=== PATIENT | female | born 1985 | race Caucasian/White ===

== ENCOUNTER 2018-11-15 19:42 | Emergency (ER) | payer MEDICAID, OTHER ==
[~2018-11-15] VITALS: Ht 162.6 cm; Wt 57.6 kg
[~2018-11-15 19:42] MED LIST: CLIN150C8 PO; CYCL-1 PO; HYDR-4383 PO
[2018-11-15 20:01] VITALS: BP 111/70
[2018-11-15] MEDS ORDERED: HYDROcodone/acetaminophen 5mg/325mg tablet PO ONE (21:20)
[2018-11-15] MEDS ORDERED: SULF1TAB49 PO (21:25)
== END 2018-11-15 21:42 | disposition home or self-care (01) ==
LOC: ER 19:43
DX: L02.413 Cutaneous abscess of right upper limb (principal); F15.90 Other stimulant use, unspecified, uncomplicated; Z86.14 Personal history of Methicillin resistant Staphylococcus aureus infection; Z79.899 Other long term (current) drug therapy
CPT/HCPCS: 10060; 99283

== ENCOUNTER 2025-05-16 02:04 | Emergency (ER) | payer MEDICAID ==
[~2025-05-16] VITALS: Ht 162.6 cm; Wt 71.7 kg
[~2025-05-16 02:04] MED LIST changes: +CLIN-214 PO; -CLIN150C8 PO
[2025-05-16 02:12] VITALS: TEMP 98.1
--- NOTE | 2025-05-16 02:36 | Physician Documentation ---
History of Present Illness ~ Chief Complaint: Urinary Symptoms Stated Complaint: URINARY SYMPTOMS Time Seen by MD: 02:32 Primary Medical Doctor: NO PMD HPI Patient presents to the emergency room with concerns for STDs. She states she notes her boyfriend cheated on her and they are not together anymore. She is having some degree of discomfort in her vaginal area. No fevers Medication Reconciliation Allergies: Coded Allergies: No Known Allergies (Unverified , 01/28/17) Scheduled Clindamycin HCl (Clindamycin HCl CAPSULE), 3 CAP PO TID Hydrocodone/Acetaminophen ([place] 5-325 Tablet), 1 TAB PO TID PRN Scheduled PRN Cyclobenzaprine* (Cyclobenzaprine*), 1 TABLET PO Q8H PRN for muscle spasms Past Medical History Past Medical History: MRSA Abscess Past Surgical History: noncontributory Drug Use: methamphetamine Lives In: Home Review of Systems ROS All review of systems negative except as per HPI Physical Exam Vital Signs: Temperature: 98.1, Source: Oral, Heart Rate: 88, Respiratory Rate: 16, BP: 129/78, Pulse Oximetry: 97, Weight: 71.700 Oxygen Flow Rate: 0 Physical Exam General: Patient is awake, alert, oriented x4 in no acute distress and well appearing.~ Head: Normocephalic and atraumatic. Eyes: Conjunctival normal. EOMI. PERRL. ENT: Mucous membranes moist. Neck: Supple, trachea is midline. Chest: Clear to auscultation bilaterally without rales, rhonchi, or wheezes. There is no accessory muscle use or retractions. Cardiac: RRR without murmurs, gallops, or rubs. Abd: Soft, nondistended, nontender, with normoactive bowel sounds. No guarding, rebound, or rigidity. Progress Results/Orders Results/Orders Vital Signs 05/16/25 02:12 Temp 98.1 Pulse 88 Resp 16 B/P (MAP) 129/78 Pulse Ox 97 O2 Flow Rate 0 Medical Decision Making Additional information obtaine: N/A Findings Patient presents to the emergency room with concerns for possible STD exposure. We will empirically treat. I do not feel emergent labs or imaging is necessary Urinary Diff Dx:Considerations: Include: AAA, , Aortic dissection, Appendicitis, Bowel obstruction, Cholelithiasis, Choleangitis, DJD, Ectopic , Hepatitis, HNP, Impaction, Intrauterine , Musculoskeletal pain, Ovarian torsion, Pancreatitis, PID, Post-Op complication, Pyelonephritis, Renal failure, Strain, Urinary Obstruction, Urolithiasis, Urinary retention, UTI, Vaginitis, Other Genital Diff Dx:Considerations: Include: -Complete, - Incomplete, -Inevitable, Ablortion-Missed, -Threatened, Abruptio placentae, Bartholin abscess, Bartholin cyst, Blood loss anemia, Constipation, Cervicitis, Dsymenorrhea, Ectopic , Foreign body, Hormonal, Hidradenitis suppurativa, Intrauterine , Menorrhagia, Menometrorrhagia, Menstrual bleeding, Myomatous uterus, Perianal abscess, Physiologic discharge, Pinworms, PID, Placenta previa, , Precipitous Hct, Trauma, UTI, Vag initis(osis)-Atrophic, Vaginitis, Vaginitis(osis)-Bacterial, Vaginitis(osis)- Candidal, Vaginitis(osis)-Contact, Vaginitis(osis)-Herpes, Vaginitis(osis)- Trich., Other Departure Disposition: HOME / SELF CARE / HOMELESS Impression: Primary Impression: STD exposure Condition: Stable Discharge Instructions: Preventing Sexually Transmitted Infections, Adult Referrals: NO PRIMARY CARE PROVIDER (PCP) Signature Scribe Signature: No scribe Attestation: The note accurately reflects work and decisions made by me.Bowen Hanna MD 05/16/25 02:36 BOWEN HANNA MD May 16, 2025 02:36
[2025-05-16] MEDS: CefTRIAXone 1000mg IM Kit (w/lidocaine diluent) IM ONE (03:19)
[2025-05-16 03:25] VITALS: BP 136/54; PULSE 68; RESP 16; O2SAT 98
== END 2025-05-16 03:26 | disposition home or self-care (01) ==
LOC: ER 02:05
DX: Z20.2 Contact with and (suspected) exposure to infections with a predominantly sexual mode of transmission (principal); F15.90 Other stimulant use, unspecified, uncomplicated; Z79.899 Other long term (current) drug therapy; Z86.14 Personal history of Methicillin resistant Staphylococcus aureus infection
CPT/HCPCS: 96372; 99283; J0696